=== PATIENT | female | born 1990 | race Hispanic/Latino ===

== ENCOUNTER 2019-10-06 18:04 | Emergency (ER) | payer SELFPAY ==
--- NOTE | 2019-10-06 18:42 | CT ---
Head CT without contrast 10/06/2019: Comparison: None HISTORY: Right-sided numbness and weakness for 3 days TECHNIQUE: Axial CT imaging at 5 mm intervals from vertex through skull base without contrast. Max l and sagittal reformatted imaging obtained. FINDINGS: No intracranial hemorrhage, midline shift, mass effect, or ventricular enlargement. Choroid al fissure cyst noted on the left measuring approximately 7 mm. The imaged paranasal sinuses and mastoid air cells are well aerated. No displaced calvarial fracture. IMPRESSION: No acute findings. Results called to Dr. Cota at 6:38 PM 09/06/2019.
[2019-10-06 18:47] LABS: Hemoglobin 14.2 g/dL (12.0-16.0); Mean Corpuscular Hemoglobin 29.3 pg (27.0-31.0); Mean Corpuscular Volume 90.5 fL (78.0-98.0); Red Blood Cell (RBC) Count 4.85 mill/uL (4.20-5.40); White Blood Cell (WBC) Count 9.5 thou/uL (4.8-10.8)
[2019-10-06 18:48] LABS: #Basophils 0.1 thou/uL (0.0-0.2); #Eosinphils 0.1 thou/uL (0.0-0.7); #Lymphocytes 2.3 thou/uL (1.20-3.40); #Monocytes 1.1 thou/uL (0.11-0.59); %Basophils 0.9 % (0.0-1.0); %Eosinophils 1.2 % (0.0-10.0); %Lymphocytes 23.7 % (21.0-51.0); %Monocytes 11.4 % (0.0-10.0); %Neutrophils 62.8 % (42.0-75.0); Mean Corpuscular HGB CONC 32.4 g/dL (32.0-36.0); Mean Platelet Volume 7.3 fL (7.4-10.4); Platelet Count 361 thou/uL (130-400); RBC Distribution Width 11.3 % (11.5-14.5)
--- NOTE | 2019-10-06 18:49 | RAD ---
Portable frontal chest radiograph: 10/06/2019 COMPARISON: None HISTORY: Right-sided weakness FINDINGS: Lungs are clear. Heart and mediastinal contours appear within normal limits. Shallow inspir ation noted with mild pulmonary vascular congestion. IMPRESSION: No focal consolidation or alveolar edema.
[2019-10-06 18:59] LABS: ALT (SGPT) 33 U/L (8-55); AST (SGOT) 19 U/L (5-34); Acetaminophen Less than 6.0 mcg/mL (10.0-30.0); Albumin 4.2 g/dL (3.5-5.0); Alcohol Less than 10 mg/dL (Less than 10); Alkaline Phosphatase 99 U/L (40-110); Anion Gap 15 mmol/L (10-20); BUN (Urea Nitrogen) 11 mg/dL (7.0-18.7); Bilirubin, Total 0.7 mg/dL (0.2-1.2); Calc. Creatinine Clearance 0 mL/min (70-130); Calcium 9.2 mg/dL (7.8-10.44); Carbon Dioxide 22 mmol/L (22-29); Chloride 106 mmol/L (98-107); Estimated GFR-MDRD Greater than 90; Globulin 3.2 g/dL (2.4-3.5); Glucose 94 mg/dL (70-105); Potassium 3.8 mmol/L (3.5-5.1); Protein, Total 7.4 g/dL (6.0-8.3); Salicylate Less than 8.0 mg/dL (15.0-30.0); Sodium 139 mmol/L (136-145)
[2019-10-06] MEDS ORDERED: Aspirin 325 MG TAB ONE (19:04)
== END 2019-10-06 19:37 | disposition short-term general hospital (02) ==
LOC: MADERS 18:04
DX: I63.9 Cerebral infarction, unspecified (principal)
CPT/HCPCS: 36416; 70450; 71045; 80053; 80307; 84484; 85025; 93005